=== PATIENT | male | born 1975 | race Two or more races ===

== ENCOUNTER 2021-09-27 20:04 | Emergency (ER) | payer SELFPAY ==
[~2021-09-27] VITALS: Ht 167.6 cm; Wt 129.3 kg
--- NOTE | 2021-09-27 21:13 | NUR ---
CALLED FOR TRIAGE. NO ANSWER
[2021-09-27 21:30] VITALS: BP 158/90
[2021-09-27] MEDS ORDERED: KETOROLAC TROMETHAMINE INJ 60 MG/2 ML VIAL IM ONE ×2 (22:30→22:31)
[2021-09-27] MEDS ORDERED: KETO10TA2 PO (23:54)
--- NOTE | 2021-09-28 00:25 | NUR ---
Patient discharged to home in stable condition. Written and verbal after care instructions given. Patient verbalizes understanding of instruction.
== END 2021-09-28 00:25 | disposition home or self-care (01) ==
LOC: ER 20:06
DX: S20.211A Contusion of right front wall of thorax, initial encounter (principal); S60.211A Contusion of right wrist, initial encounter; I10 Essential (primary) hypertension; F41.9 Anxiety disorder, unspecified; F17.200 Nicotine dependence, unspecified, uncomplicated; Z90.89 Acquired absence of other organs; W01.0XXA Fall on same level from slipping, tripping and stumbling without subsequent striking against object, initial encounter; Y93.89 Activity, other specified; Y92.89 Other specified places as the place of occurrence of the external cause; Y99.8 Other external cause status
CPT/HCPCS: 71100; 73110; 96372; 99284; J1885